=== PATIENT | female | born 1950 | race African-American/Black ===

== ENCOUNTER 2020-02-13 11:26 | Inpatient (IN) | payer MEDICARE ==
[~2020-02-13] VITALS: Ht 165.1 cm; Wt 64.9 kg
[2020-02-13] MEDS ORDERED: SODIUM CHLORIDE 0.9% 1,000 ML IV ONE (11:41)
[2020-02-13 12:38] LABS: HEMATOCRIT. 32.8 % (36.0-48.0); HEMOGLOBIN. 10.5 g/dL (12.0-16.0); MEAN CORPUSCULAR VOLUME 75.2 fL (81.0-99.0); RED BLOOD CELL COUNT 4.36 mill/uL (4.2-5.4)
[2020-02-13 12:41] LABS: CHLORIDE 108 mEq/L (98-107); INR 1.3; PROTHROMBIN TIME 14.1 sec (9.6-11.0)
[2020-02-13 13:02] LABS: PLATELET 88 x1000/uL (130-400)
[2020-02-13 13:11] LABS: ATYPICAL LYMPHOCYTES 1; NUCLEATED RED BLOOD CELLS 29 /100 WBC; PLATELET ESTIMATE DECREASED
[2020-02-13] MEDS ORDERED: ENOXAPARIN 80MG/0.8ML SYR SUBCUT ONE (13:15)
[2020-02-13] MEDS ORDERED: POTASSIUM CHLORIDE 20MEQ TABLET SR PO ONE (13:15)
[2020-02-13] MEDS ORDERED: POTASSIUM CHLORIDE INJ 40 MEQ in DEXT 5% WATER 250 ML IV ONE (13:15)
[2020-02-13] MEDS ORDERED: ASPIRIN 81MG TABLET PO ONE (13:15)
[2020-02-13] MEDS ORDERED: IPRATROPIUM/ALBUTEROL 0.5-3(2.5)MG/3ML NEB HHN PRN (14:15)
[2020-02-13] MEDS ORDERED: ONDANSETRON HCL 4MG/2ML INJ IV PRN (14:15)
[2020-02-13] MEDS ORDERED: CEFEPIME 1,000 MG in DEXTROSE 5% WATER 50 ML IV SCH (16:40)
[2020-02-13] MEDS ORDERED: METRONIDAZOLE 500 MG PREMIX 100 ML IV SCH (16:41)
[2020-02-13] MEDS ORDERED: NITROGLYCERIN OINT 1GM/INCH UDPKT TD SCH (16:41)
[2020-02-13] MEDS ORDERED: CLONIDINE 0.1MG TABLET PO PRN (17:15)
[2020-02-13] MEDS: NITROGLYCERIN OINT 1GM/INCH UDPKT TD SCH (22:41)
[2020-02-14] VITALS (12 sets, daily range): BP systolic 66–176; BP diastolic 30–91
[2020-02-14] MEDS: DEXT 5%/0.45% NACL 1000ML 1,000 ML IV SCH ×2 (00:10→12:36)
[2020-02-14] MEDS: LEVETIRACETAM 500MG PREMIX 100 ML IV SCH ×3 (00:10→21:48)
[2020-02-14] MEDS ORDERED: MAGNESIUM 2 G PREMIX 50 ML IV SCH (01:00)
[2020-02-14] MEDS: METRONIDAZOLE 500 MG PREMIX 100 ML IV SCH ×3 (02:17→17:44)
[2020-02-14] MEDS ORDERED: CEFEPIME 1,000 MG in DEXTROSE 5% WATER 50 ML IV SCH ×2 (05:00→18:00)
[2020-02-14] MEDS: NITROGLYCERIN OINT 1GM/INCH UDPKT TD SCH ×3 (05:11→21:49)
[2020-02-14 06:37] LABS: HEMATOCRIT. 24.7 % (36.0-48.0); HEMOGLOBIN. 8.1 g/dL (12.0-16.0); MEAN CORPUSCULAR HEMOGLOBIN 24.5 pg (28.0-32.0); MEAN CORPUSCULAR VOLUME 74.9 fL (81.0-99.0); RED CELL DISTRIBUTION WIDTH 25.2 % (11.6-14.6)
[2020-02-14 06:40] LABS: CHLORIDE 116 mEq/L (98-107)
[2020-02-14] MEDS ORDERED: POTASSIUM CHLORIDE INJ 40 MEQ in DEXT 5% WATER 250 ML IV SCH ×2 (09:00→13:00)
[2020-02-14 09:17] LABS: PLATELET 80 x1000/uL (130-400)
[2020-02-14 09:27] LABS: NUCLEATED RED BLOOD CELLS 33 /100 WBC
[2020-02-14 09:28] LABS: PLATELET ESTIMATE DECREASED
[2020-02-14] MEDS ORDERED: LIDOCAINE HCL 1% 20ML VIAL (Pyxis) INJ ONE (10:19)
[2020-02-14] MEDS: ACETAMINOPHEN 325MG TABLET PO PRN (12:36)
[2020-02-14] MEDS ORDERED: GADOBENATE DIMEGLUMINE 529 MG/ML 10ML IV ONE (13:16)
[2020-02-14] MEDS: DILTIAZEM HCL 30MG TABLET PO SCH ×2 (14:26→21:49)
[2020-02-14] MEDS ORDERED: IOHEXOL-300 100 ML BOTTLE ONE (14:43)
[2020-02-14] MEDS: CEFEPIME 1,000 MG in DEXTROSE 5% WATER 50 ML IV SCH (17:44)
[2020-02-14 20:42] LABS: PHOSPHORUS 2.7 mg/dL (2.5-4.9)
[2020-02-15] VITALS (12 sets, daily range): BP systolic 121–147; BP diastolic 47–91
[2020-02-15] MEDS: DEXT 5%/0.45% NACL 1000ML 1,000 ML IV SCH ×2 (02:39→15:29)
[2020-02-15] MEDS: METRONIDAZOLE 500 MG PREMIX 100 ML IV SCH ×3 (02:39→17:52)
[2020-02-15] MEDS: ACETAMINOPHEN 325MG TABLET PO PRN ×3 (05:07→20:58)
[2020-02-15] MEDS: NITROGLYCERIN OINT 1GM/INCH UDPKT TD SCH ×3 (05:08→20:48)
[2020-02-15] MEDS: DILTIAZEM HCL 30MG TABLET PO SCH ×3 (05:09→20:49)
[2020-02-15] MEDS: CEFEPIME 1,000 MG in DEXTROSE 5% WATER 50 ML IV SCH ×2 (05:09→17:52)
[2020-02-15 07:27] LABS: HEMATOCRIT. 25.7 % (36.0-48.0); HEMOGLOBIN. 8.4 g/dL (12.0-16.0); MEAN CORPUSCULAR HEMOGLOBIN 24.8 pg (28.0-32.0); MEAN PLATELET VOLUME 8.6 fl (7.4-10.4); PLATELET 82 x1000/uL (130-400); RED BLOOD CELL COUNT 3.38 mill/uL (4.2-5.4); RED CELL DISTRIBUTION WIDTH 25.6 % (11.6-14.6)
[2020-02-15 07:36] LABS: CHLORIDE 114 mEq/L (98-107)
[2020-02-15 08:04] LABS: HEPATITIS B SURFACE ANTIGEN NEGATIVE
[2020-02-15 08:33] LABS: HEPATITIS A AB IGM NEGATIVE (NEGATIVE)
[2020-02-15] MEDS: LEVETIRACETAM 500MG PREMIX 100 ML IV SCH ×2 (09:25→20:46)
[2020-02-15] MEDS ORDERED: POTASSIUM CHLORIDE 20MEQ/PACKET PO SCH (11:30)
[2020-02-15 13:06] LABS: NUCLEATED RED BLOOD CELLS 32 /100 WBC; PLATELET ESTIMATE DECREASED
[2020-02-16] VITALS (12 sets, daily range): BP systolic 103–155; BP diastolic 40–99
[2020-02-16] MEDS: METRONIDAZOLE 500 MG PREMIX 100 ML IV SCH ×3 (00:46→17:51)
[2020-02-16] MEDS: DEXT 5%/0.45% NACL 1000ML 1,000 ML IV SCH ×2 (05:06→17:57)
[2020-02-16] MEDS: CEFEPIME 1,000 MG in DEXTROSE 5% WATER 50 ML IV SCH ×2 (05:55→17:51)
[2020-02-16] MEDS: NITROGLYCERIN OINT 1GM/INCH UDPKT TD SCH ×3 (05:56→20:06)
[2020-02-16] MEDS: DILTIAZEM HCL 30MG TABLET PO SCH ×3 (05:56→20:06)
[2020-02-16 07:44] LABS: HEMATOCRIT. 28.3 % (36.0-48.0); HEMOGLOBIN. 9.3 g/dL (12.0-16.0); MEAN CORPUSCULAR HEMOGLOBIN 24.8 pg (28.0-32.0); MEAN CORPUSCULAR VOLUME 75.8 fL (81.0-99.0); RED BLOOD CELL COUNT 3.74 mill/uL (4.2-5.4); RED CELL DISTRIBUTION WIDTH 26.3 % (11.6-14.6)
[2020-02-16 07:53] LABS: CHLORIDE 115 mEq/L (98-107)
[2020-02-16] MEDS: LEVETIRACETAM 500MG PREMIX 100 ML IV SCH ×2 (08:38→20:05)
[2020-02-16 09:08] LABS: IMMUNOGLOBULIN A 235 mg/dL (87-352); IMMUNOGLOBULIN G 852 mg/dL (586-1602); IMMUNOGLOBULIN M 72 mg/dL (26-217)
[2020-02-16 13:06] LABS: ANTI-NUCLEAR ANTIBODIES DIRECT Negative (Negative)
[2020-02-16 14:07] LABS: NUCLEATED RED BLOOD CELLS 32 /100 WBC
[2020-02-16 14:09] LABS: PLATELET ESTIMATE DECREASED
[2020-02-16 14:10] LABS: MEAN PLATELET VOLUME 8.9 fl (7.4-10.4); PLATELET 67 x1000/uL (130-400)
[2020-02-17] VITALS (12 sets, daily range): BP systolic 96–140; BP diastolic 43–104
[2020-02-17] MEDS: METRONIDAZOLE 500 MG PREMIX 100 ML IV SCH ×3 (01:54→17:58)
[2020-02-17] MEDS: ACETAMINOPHEN 325MG TABLET PO PRN ×2 (05:20→20:53)
[2020-02-17] MEDS: DILTIAZEM HCL 30MG TABLET PO SCH ×3 (05:25→20:53)
[2020-02-17] MEDS: CEFEPIME 1,000 MG in DEXTROSE 5% WATER 50 ML IV SCH ×2 (05:25→17:57)
[2020-02-17] MEDS: NITROGLYCERIN OINT 1GM/INCH UDPKT TD SCH ×3 (05:26→20:53)
[2020-02-17 07:56] LABS: HEMATOCRIT. 24.2 % (36.0-48.0); HEMOGLOBIN. 7.9 g/dL (12.0-16.0); MEAN CORPUSCULAR HEMOGLOBIN 24.6 pg (28.0-32.0); MEAN CORPUSCULAR VOLUME 75.4 fL (81.0-99.0); RED BLOOD CELL COUNT 3.21 mill/uL (4.2-5.4); RED CELL DISTRIBUTION WIDTH 25.7 % (11.6-14.6)
[2020-02-17 08:07] LABS: CHLORIDE 114 mEq/L (98-107)
[2020-02-17] MEDS: DIPHENHYDRAMINE 50MG/ML VIAL IV PRN ×2 (08:34→23:37)
[2020-02-17] MEDS: LEVETIRACETAM 500MG PREMIX 100 ML IV SCH ×2 (08:34→20:55)
[2020-02-17] MEDS: DEXT 5%/0.45% NACL 1000ML 1,000 ML IV SCH ×2 (08:35→23:38)
[2020-02-17] MEDS ORDERED: POTASSIUM CHLORIDE 20MEQ/PACKET PO SCH (09:00)
[2020-02-17 09:59] LABS: NUCLEATED RED BLOOD CELLS 19 /100 WBC
[2020-02-17 10:02] LABS: MEAN PLATELET VOLUME 9.1 fl (7.4-10.4); PLATELET 63 x1000/uL (130-400); PLATELET ESTIMATE MARKEDLY DECREASED
[2020-02-18] VITALS (13 sets, daily range): BP systolic 109–143; BP diastolic 45–73
[2020-02-18] MEDS: NITROGLYCERIN OINT 1GM/INCH UDPKT TD SCH (05:27)
[2020-02-18] MEDS: DILTIAZEM HCL 30MG TABLET PO SCH ×3 (05:28→20:52)
[2020-02-18 08:02] LABS: HEMATOCRIT. 23.2 % (36.0-48.0); HEMOGLOBIN. 7.6 g/dL (12.0-16.0); MEAN CORPUSCULAR HEMOGLOBIN 24.7 pg (28.0-32.0); MEAN CORPUSCULAR VOLUME 75.5 fL (81.0-99.0); RED BLOOD CELL COUNT 3.08 mill/uL (4.2-5.4); RED CELL DISTRIBUTION WIDTH 25.8 % (11.6-14.6)
[2020-02-18 08:19] LABS: CHLORIDE 113 mEq/L (98-107)
[2020-02-18] MEDS: LEVETIRACETAM 500MG PREMIX 100 ML IV SCH ×2 (08:29→20:52)
[2020-02-18] MEDS: ISOSORBIDE MONONITRATE 30MG TABLET SR 24HR PO SCH (08:30)
[2020-02-18] MEDS: DEXT 5%/0.45% NACL 1000ML 1,000 ML IV SCH (10:51)
[2020-02-18] MEDS ORDERED: POTASSIUM CHLORIDE 20MEQ/PACKET PO SCH (12:15)
[2020-02-18 13:38] LABS: NUCLEATED RED BLOOD CELLS 12 /100 WBC
[2020-02-18 13:41] LABS: MEAN PLATELET VOLUME 9.8 fl (7.4-10.4); PLATELET 70 x1000/uL (130-400); PLATELET ESTIMATE DECREASED
[2020-02-18] MEDS: ACETAMINOPHEN 325MG TABLET PO PRN (18:15)
[2020-02-18] MEDS: DIPHENHYDRAMINE 50MG/ML VIAL IV PRN ×2 (18:16→20:52)
[2020-02-19] VITALS (7 sets, daily range): BP systolic 125–140; BP diastolic 44–65
[2020-02-19] MEDS: DILTIAZEM HCL 30MG TABLET PO SCH (05:46)
[2020-02-19] MEDS: DEXT 5%/0.45% NACL 1000ML 1,000 ML IV SCH (05:47)
[2020-02-19 08:06] LABS: ALPHA-1-GLOBULIN 0.4 g/dL (0.0-0.4); ALPHA-2-GLOBULIN 0.9 g/dL (0.4-1.0); BETA GLOBULIN 0.7 g/dL (0.7-1.3); GAMMA GLOBULINS 0.9 g/dL (0.4-1.8); GLOBULIN TOTAL 2.9 g/dL (2.2-3.9); M-SPIKE Not Observed g/dL (Not Observed); TOTAL PROTEIN SERUM 5.9 g/dL (6.0-8.5)
[2020-02-19] MEDS: LEVETIRACETAM 500MG PREMIX 100 ML IV SCH (08:13)
[2020-02-19] MEDS: ISOSORBIDE MONONITRATE 30MG TABLET SR 24HR PO SCH (08:14)
[2020-02-19] MEDS ORDERED: METOPROLOL TARTRATE 25MG TABLET PO SCH (21:00)
[2020-02-19] MEDS ORDERED: LEVETIRACETAM 500MG TABLET PO SCH (21:00)
[2020-02-20 13:06] LABS: HGB A 98.3 % (96.4-98.8); HGB A2 1.7 % (1.8-3.2)
== END 2020-02-19 14:00 | DRG 70 ==
LOC: ER 11:26 → EDBEDREQTM 13:20 → EDBEDREQ 13:20 → EDBEDREQSVC 13:20 → EDBEDREQ 17:17 → ENRESERV 20:26 → 5EST 21:27
PROVIDERS: ADMIT Internal Medicine; ATTEND Internal Medicine
PROC: 02HV33Z Insertion of Infusion Device into Superior Vena Cava, Percutaneous Approach (ICD-10-PCS; principal; 2020-02-14)
PROC: B548ZZA Ultrasonography of Superior Vena Cava, Guidance (ICD-10-PCS; 2020-02-14)
DX: G93.41 Metabolic encephalopathy (principal); I21.4 Non-ST elevation (NSTEMI) myocardial infarction; B17.9 Acute viral hepatitis, unspecified; R47.01 Aphasia; I47.1 Supraventricular tachycardia; D69.3 Immune thrombocytopenic purpura; E87.8 Other disorders of electrolyte and fluid balance, not elsewhere classified; E87.6 Hypokalemia; E83.52 Hypercalcemia; D69.6 Thrombocytopenia, unspecified; D64.9 Anemia, unspecified; I49.1 Atrial premature depolarization; E11.9 Type 2 diabetes mellitus without complications; F17.210 Nicotine dependence, cigarettes, uncomplicated; I11.9 Hypertensive heart disease without heart failure; I25.10 Atherosclerotic heart disease of native coronary artery without angina pectoris; F03.90 Unspecified dementia, unspecified severity, without behavioral disturbance, psychotic disturbance, mood disturbance, and anxiety; D50.9 Iron deficiency anemia, unspecified; I48.91 Unspecified atrial fibrillation; D72.825 Bandemia; Z60.2 Problems related to living alone; Z79.899 Other long term (current) drug therapy; Z87.311 Personal history of (healed) other pathological fracture; Z03.818 Encounter for observation for suspected exposure to other biological agents ruled out
CPT/HCPCS: 36415; 70553; 71045; 71260; 74177; 76937; 80048; 80053; 82784; 82962; 83021; 83036; 83735; 84100; 84155; 84165; 84484; 85025; 85660; 86038; 86334; 86705; 86709; 86803; 87340; 92610; 93005; 93306; 97162; 97166; 97530; 99291; A9577; C1725; J0692; J1200; J1650; J1953; J3475; J3480; J3490; J7030; J7060; Q9967; U0003-CS